=== PATIENT | female | born 1950 | race African-American/Black ===

== ENCOUNTER 2023-12-08 14:36 | Emergency (ER) | payer MEDICARE ==
[2023-12-08 15:03] LABS: PTT 27.3 sec (22.9-36.1)
[2023-12-08 15:10] LABS: Anion Gap 16 mmol/L (10-20); BUN (Urea Nitrogen) 9 mg/dL (9.8-20.1); Calc. Creatinine Clearance 0 mL/min (70-130); Carbon Dioxide 26 mmol/L (23-31); Chloride 103 mmol/L (98-107); Estimated GFR 73; Glucose 103 mg/dL (83-110); Potassium 3.6 mmol/L (3.5-5.1); Sodium 141 mmol/L (136-145)
[2023-12-08 15:14] LABS: Hematocrit 41.1 % (36.0-47.0); Hemoglobin 13.9 g/dL (12.0-16.0); Mean Corpuscular HGB CONC 33.7 g/dL (32.0-36.0); Mean Corpuscular Hemoglobin 31.3 pg (27.0-31.0); Mean Corpuscular Volume 92.8 fl (78.0-98.0); Platelet Count 172 10x3/uL (130-400); RBC Distribution Width 12.2 % (11.5-14.5); Red Blood Cell (RBC) Count 4.43 mill/uL (4.20-5.40)
[2023-12-08 15:15] LABS: Eosinophils 2 % (0-10); Lymphocytes 13 % (21-51); MDiff Complete? YES; Manual Diff?? YES; Monocytes 15 % (0-10); Neutrophil 51 % (42-75); Reactive Lymphocytes 19 % (0-10)
[2023-12-08 15:16] LABS: RBC Morph Comment Within Normal Limits
[2023-12-08 15:17] LABS: Platelet Adequacy Comment Appears Adequate
[2023-12-08] MEDS ORDERED: Furosemide 40 MG TAB ONE (16:03)
== END 2023-12-08 16:17 | disposition home or self-care (01) ==
LOC: MADERS 14:36
DX: M54.10 Radiculopathy, site unspecified (principal); M50.30 Other cervical disc degeneration, unspecified cervical region; J81.0 Acute pulmonary edema
CPT/HCPCS: 71045; 72040; 80048; 83880; 84484; 85025; 85610; 85730; 93005